=== PATIENT | female | born 1985 ===

== ENCOUNTER 2017-12-16 02:23 | Emergency (ER) | payer MEDICAID ==
[2017-12-16 02:23] VITALS: BMI 39.8
--- NOTE | 2017-12-16 03:00 | C.PDOC ---
History Of Present Illness 32 year old female presents to the ED c/o fever, vomiting associated with decreased PO intake. Patient reports she is 13 weeks . Patient denies diarrhea, abdominal pain, vaginal bleeding, vaginal discharge, dysuria, hematuria, back pain. Time Seen by Provider: 12/16/17 02:59 Chief Complaint (Nursing): Fever History Per: Patient History/Exam Limitations: no limitations Onset/Duration Of Symptoms: Days Current Symptoms Are (Timing): Still Present Location Of Pain: None Sick Contacts (Context): None Associated Symptoms: Fever, Vomiting Recent travel outside of the [place]: No Additional History Per: Patient Past Medical History Reviewed: Historical Data, Nursing Documentation, Vital Signs Vital Signs: Last Vital Signs Temp 98.7 F 12/16/17 04:28 Pulse 79 12/16/17 04:28 Resp 14 12/16/17 04:28 BP 107/67 12/16/17 04:28 Pulse Ox 96 12/16/17 04:28 - Medical History PMH: Anxiety, Back Problems, Seizures Surgical History: (x 1) - [facility] Procedures OPEN REDUCT FACE FX NEC (02/04/13) SYN IMPLANT TO FACE BONE (02/04/13) Family History: States: Unknown Family Hx - Social History Hx Alcohol Use: Yes Hx Substance Use: No - Immunization History Hx Tetanus Toxoid Vaccination: No Hx Influenza Vaccination: No Hx Pneumococcal Vaccination: No Review Of Systems Constitutional: Positive for: Fever. Negative for: Chills Cardiovascular: Negative for: Chest Pain Respiratory: Negative for: Cough, Shortness of Breath Gastrointestinal: Positive for: Vomiting. Negative for: Nausea, Abdominal Pain , Diarrhea Genitourinary: Negative for: Dysuria, Hematuria, Vaginal Discharge, Vaginal Bleeding Skin: Negative for: Rash Physical Exam - Physical Exam Appears: Non-toxic, No Acute Distress Skin: Warm, Dry Head: Normacephalic Eye(s): bilateral: Normal Inspection Oral Mucosa: Moist Neck: Supple Chest: Symmetrical Cardiovascular: Rhythm Regular Respiratory: No Rales, Rhonchi (at the bases), No Wheezing Gastrointestinal/Abdominal: Soft, No Tenderness, Distention, No Guarding, No Rebound Extremity: Normal ROM Extremity: Bilateral: Atraumatic, Normal Color And Temperature, Normal ROM Neurological/Psych: Oriented x3, Normal Speech Gait: Steady ED Course And Treatment - Laboratory Results Result Diagrams: 12/16/17 03:53 12/16/17 03:53 O2 Sat by Pulse Oximetry: 98 (ON RA) Pulse Ox Interpretation: Normal Progress Note: Plan: - Labs. - IV fluids. - Zofran 4mg IVP. - UA Reevaluation Time: 05:13 Reassessment Condition: Improved Medical Decision Making Medical Decision Making: Upon provider reevaluation patient is feeling better, is medically stable, and requires no further treatment in the ED at this time. Patient will be discharged home with Rx for zithromax(only if with fever, brownish sputum) and zofran . Counseling was provided and all questions were answered regarding diagnosis and need for follow up with the referred clinic. There is agreement to discharge plan. Return if symptoms persist or worsen. Disposition Counseled Patient/Family Regarding: Studies Performed, Diagnosis, Need For Followup, Rx Given - Disposition [facility]errals: [facility] [Outside] Disposition: HOME/ ROUTINE Disposition Time: 03:00 Condition: FAIR Additional Instructions: Please return if symptoms recur Prescriptions: Azithromycin [Zithromax Tri-Sung] 500 mg PO DAILY #3 tablet Ondansetron ODT [Zofran ODT] 4 mg PO Q8H PRN #12 odt PRN Reason: Nausea/Vomiting Instructions: Nausea and Vomiting of (DC) Forms: [facility] (Austrian) - Clinical Impression Clinical Impression: Bronchitis, Hyperemesis gravidarum - Scribe Statement The provider has reviewed the documentation as recorded by the Scribe Tyree Campbell All medical record entries made by the Scribe were at my direction and personally dictated by me. I have reviewed the chart and agree that the record accurately reflects my personal performance of the history, physical exam, medical decision making, and the department course for this patient. I have also personally directed, reviewed, and agree with the discharge instructions and disposition.
[2017-12-16 03:18] LABS: SQUAMOUS EPITHIAL 2 /hpf (0-5); URINE BILIRUBIN NEGATIVE (NEGATIVE); URINE BLOOD NEGATIVE (NEGATIVE); URINE CLARITY Clear (Clear); URINE COLOR Yellow (YELLOW); URINE GLUCOSE (UA) NORMAL (Normal); URINE LEUKOCYTE ESTERASE NEG Leu/uL (Negative); URINE PROTEIN NEGATIVE (NEGATIVE); URINE UROBILINOGEN NORMAL mg/dL (0.2-1.0)
[2017-12-16 03:25] LABS: HCG,QUALITATIVE URINE POSITIVE (NEGATIVE)
[2017-12-16] MEDS ORDERED: Sodium Chloride 0.9% 1,000 ML IV ONE (03:35)
[2017-12-16 03:57] LABS: BASO # 0.1 K/uL (0.0-0.2); BASO % 0.4 % (0.0-2.0); EOS # 0.3 K/uL (0.0-0.7); EOS % 1.6 % (0.0-4.0); HEMOGLOBIN 11.3 g/dL (11.0-16.0); LYMPH # 1.5 K/uL (1.0-4.3); LYMPH % 7.7 % (20.0-40.0); MEAN CELL VOLUME 88.6 fL (81.0-99.0); MEAN CORPUSCULAR HEMOGLOBIN 30.4 pg (27.0-31.0); MEAN CORPUSCULAR HGB CONC 34.3 g/dL (33.0-37.0); MEAN PLATELET VOLUME 8.5 fL (7.2-11.7); MONO # 0.8 K/uL (0.0-0.8); MONO % 3.9 % (0.0-10.0); NEUT # 17.1 K/uL (1.8-7.0); NEUT % 86.4 % (50.0-75.0); PLATELET COUNT 230 K/uL (130-400); RBC 3.71 Mil/uL (3.80-5.20); RED CELL DISTRIBUTION WIDTH 12.6 % (11.5-14.5); WHITE BLOOD COUNT 19.8 K/uL (4.8-10.8)
[2017-12-16] MEDS ORDERED: Sodium Chloride 0.9% 1,000 ML ONE (04:07)
[2017-12-16 04:12] LABS: ALB/GLOB RATIO 1.1 (1.0-2.1); ALT/SGPT 13 U/L (9-52); AST/SGOT 24 U/L (14-36); BLOOD UREA NITROGEN 10 mg/dL (7-17); CALCIUM 8.8 mg/dl (8.6-10.4); GFR AFRICAN-AMERICAN > 60; GFR NON-AFRICAN AMERICAN > 60
[2017-12-16 04:57] LABS: ANISOCYTOSIS SLIGHT; BANDS 1 % (0-2); EOSINOPHIL 2 % (0-4); LYMPHOCYTE 8 % (20-40); MONOCYTE 6 % (0-10); NEUTROPHIL 83 % (50-75); PLATELET ESTIMATE NORMAL (NORMAL); TOTAL CELLS COUNTED 100
[2017-12-16 05:06] LABS: PROTHROMBIN TIME 11.1 SECONDS (9.7-12.2)
[2017-12-16 05:16] VITALS: O2SAT 98
[2017-12-16 05:49] VITALS: BP 105/65; PULSE 72; RESP 16; TEMP 98.5
== END 2017-12-16 05:49 | disposition home or self-care (01) ==
LOC: C.ER 02:23
DX: O21.0 Mild hyperemesis gravidarum (principal); O99.511 Diseases of the respiratory system complicating pregnancy, first trimester; J40 Bronchitis, not specified as acute or chronic; Z3A.13 13 weeks gestation of pregnancy
CPT/HCPCS: 80053; 81001; 84702; 84703; 85025; 85610; 85730; 86850; 86900; 96361; 96374; 99285; J2405; J7030